=== PATIENT | female | born 1955 | race Caucasian/White ===

== ENCOUNTER → 2023-02-17 | Outpatient (CLI) | payer MEDICARE, MEDICAID ==
[~2023-02-17] MED LIST: ACET650T61 PO; CLAR10CA3 PO; MELO7.5T35; METO50TA7; OMEP-173; OSTE1TAB2 PO; ROSU40TA4; SERTRALINE; TRIA75TA
[2023-02-17 16:35] LABS: ALBUMIN 3.5 G/DL (3.2-5.2); ALKALINE PHOSPHATASE 88 U/L (46-116); ALT/SGPT 27 U/L (7.0-40); AST/SGOT 44 U/L (<34); BILIRUBIN,DIRECT 0.6 MG/DL (<0.4); BILIRUBIN,TOTAL 1.5 MG/DL (0.3-1.2); IRON (FE) 85 UG/DL (50-170); PERCENT SATURATION 21.1 % (13.2-45.0); TOTAL IRON BINDING CAPACITY 402 UG/DL (250-425); TOTAL PROTEIN 7.1 G/DL (5.7-8.2)
[2023-02-17 16:39] LABS: IMMUNOGLOBULIN A 321.9 MG/DL (40-350)
[2023-02-17 16:49] LABS: INR 1.18; PROTHROMBIN TIME 14.7 SECONDS (12.5-14.5)
[2023-02-17 17:10] LABS: HEPATITIS B CORE ANTIBODY IGM NEGATIVE (NEGATIVE); HEPATITIS C VIRUS ABY INDEX 0.07 INDEX (<0.8)
[2023-02-20 16:10] LABS: ANCA-ATYPICAL <1:20 titer (Neg:<1:20); ANTI-MITOCHONDRIAL ANTIBODY <20.0 Units (0.0-20.0); ANTINUCLEAR ANTIBODIES DIRECT Negative (Negative); CERULOPLASMIN 23.8 mg/dL (19.0-39.0); CYTOPLASMIC NEUTROP AB ANCA-C <1:20 titer (Neg:<1:20); LIVER-KIDNEY MICROSOMAL ABY <20.1 Units (0.0-20.0); PERINUCLEAR AB ANCA-P <1:20 titer (Neg:<1:20); TISSUE TRANSGLUTAMINASE IgA <2 U/mL (0-3)
== END ==
LOC: M WUC 10:49
PROVIDERS: ATTEND Internal Medicine Gastroenterology
DX: K74.60 Unspecified cirrhosis of liver (principal)

== ENCOUNTER → 2023-03-19 | Outpatient (CLI) | payer MEDICARE, MEDICAID | LOC: M RAD 09:29 | PROVIDERS: ATTEND Internal Medicine Gastroenterology | DX: K74.60 Unspecified cirrhosis of liver (principal) ==